=== PATIENT | female | born 1945 | race Caucasian/White ===

== ENCOUNTER 2022-05-03 23:34 | Emergency (ER) | payer MEDICARE ==
[2022-05-03] MEDS ORDERED: TYLENOL 325 MG PO STA (23:56)
[2022-05-03] MEDS ORDERED: Adacel Vial IM ONE ×2 (23:57→23:59)
[2022-05-03] MEDS ORDERED: TYLENOL 325 MG ONE (23:59)
--- NOTE | 2022-05-04 00:04 | ERPHSYRPT ---
- History of Present Illness Time Seen by Provider: 05/03/22 23:40 Source: patient, family Exam Limitations: no limitations Patient Subjective Stated Complaint: pt states that she was getting out of the tub and slipped and fell in the tub, hit head on the faucet and now has pain 10/10 on head also has some pain in back. pt states she has been feeling dizzy for a month. Triage Nursing Assessment: pt is alert and oriented, answering all questions appropriatly. Bp is elevated at 187/83 all other vitals wnl. Physician History: 76-year-old female presented in the ER after she slipped while getting out of bathtub and hit her right forehead against the faucet prior to arrival without loss of consciousness. Patient reports having dull aching frontal headache with a hematoma in the forehead without difficulty movements of eyeball. Denies any neck pain. No injury anywhere else. Occurred: just prior to arrival Severity: moderate Head Injury Location: frontal Method of Injury: fell Loss of Consciousness: no loss of consciousness Associated Symptoms: headaches Allergies/Adverse Reactions: No Known Drug Allergies Allergy (Unverified 05/03/22 23:51) Hx Tetanus, Diphtheria Vaccination/Date Given: No Hx Influenza Vaccination/Date Given: No Hx Pneumococcal Vaccination/Date Given: No Travel Risk - International Travel Have you traveled outside of the country in past 3 weeks: No - Coronavirus Screening Are you exhibiting any of the following symptoms?: No Close contact with a COVID-19 positive Pt in past 14-21 Days: No - Vaccine Status Have you recieved a Covid-19 vaccination: Yes [place] [employer]: Moderna - Vaccination Dates Date of 2cond Vaccination (if applicable): unknown - Review of Systems Constitutional: No Symptoms Eyes: No Symptoms Ears, Nose, & Throat: No Symptoms Respiratory: No Symptoms Cardiac: No Symptoms Abdominal/Gastrointestinal: No Symptoms Genitourinary Symptoms: No Symptoms Musculoskeletal: Injury Skin: Skin Lesions Neurological: Headache Psychological: No Symptoms Endocrine: No Symptoms Hematologic/Lymphatic: No Symptoms Immunological/Allergic: No Symptoms - Past Medical History Pertinent Past Medical History: Yes Cardiac History: Hypertension Endocrine Medical History: Diabetes Type II, Hypothyroidism - Past Surgical History Past Surgical History: No - Social History Smoking Status: Never smoker Exposure to second hand smoke: No Drug Use: none - Nursing Vital Signs Nursing Vital Signs: Initial Vital Signs Temperature 97.4 F 05/03/22 23:37 Pulse Rate 104 H 05/03/22 23:37 Respiratory Rate 20 05/03/22 23:37 Blood Pressure 187/83 05/03/22 23:37 O2 Sat by Pulse Oximetry 101 H 05/03/22 23:37 Pain Scale Pain Intensity 8 - Shruti Coma Score Best Eye Response (Sassafras): (4) open spontaneously Best Verbal Response (Sassafras): (5) oriented Best Motor Response (Shruti): (6) obeys commands [place]fras Total: 15 - Physical Exam General Appearance: no apparent distress Head Injury: contusions (Right forehead with abrasion of skin, hematoma with no step in deformity), swelling, tenderness Eye Exam: bilateral eye: normal inspection, PERRL, EOMI ENT Exam: airway nml, No evidence of ENT injury, No dental injury Neck Exam: supple, trachea midline, full range of motion, normal alignment, normal inspection Cardiovascular/Respiratory Exam: chest non-tender, normal breath sounds, regular rate/rhythm Gastrointestinal/Abdominal Exam: soft, non tender, No no distention Back Exam: normal inspection, normal range of motion Extremity Exam: non-tender, normal range of motion Mental Status Exam: alert, oriented x 3, 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 Exam: normal hearing, normal speech, PERRL Coordination/Gait Exam: normal finger to nose, normal gait Motor/Sensory Exam: no motor deficit, no sensory deficit, no pronator drift, negative Babinski's sign DTR Exam: bicep (R): 2+, bicep (L): 2+, knee (R): 2+, knee (L): 2+ Skin Exam: normal color SpO2 Interpretation: normal SpO2: 101 O2 Delivery: Room Air Ordered Tests: Active Orders 24 hr Category Date Time Status CERVICAL SPINE WO CONTRAST [CT] Stat Exams 05/03/22 23:56 Taken HEAD WITHOUT CONTRAST [CT] Stat Exams 05/03/22 23:56 Taken Medication Summary Discontinued Medications Generic Name Dose Route Start Last Admin Trade Name Pamella PRN Reason Stop Dose Admin Acetaminophen 975 mg 05/03/22 23:56 05/04/22 00:00 Acetaminophen 325 Mg Tablet PO 05/03/22 23:57 975 mg STAT STA Administration Acetaminophen Confirm 05/03/22 23:59 Acetaminophen 325 Mg Tablet Administered 05/04/22 00:00 Dose 975 mg .ROUTE .STK-MED ONE Diphtheria/Tetanus/Acell Pertussis 0.5 ml 05/03/22 23:57 05/04/22 00:01 Tdap --Diph,Pertuss(Acell),Tet Vac/Pf 0.5 Ml Vial IM 05/03/22 23:58 0.5 ml .ONCE ONE Administration Diphtheria/Tetanus/Acell Pertussis Confirm 05/03/22 23:59 Tdap --Diph,Pertuss(Acell),Tet Vac/Pf 0.5 Ml Vial Administered 05/04/22 00:00 Dose 0.5 ml IM .STK-MED ONE - Progress Progress: improved, pain not gone completely Progress Note: 05/04/22 00:40 She is given Tylenol for symptomatic relief. CT head and cervical spine negative for any acute findings. No injury anywhere else. Intact range of motion of eyeball. Recommended Tylenol and outpatient follow-up. Discussed signs symptoms of worsening needing return to ER which patient/family seem understanding. Counseled pt/family regarding: diagnosis, need for follow-up - Departure Departure Disposition: Home Clinical Impression: Contusion of forehead, Fall Condition: Stable Critical Care Time: No Referrals: SIMRAN ORNELAS MD [Primary Care Provider] - Follow Up with PCP/3 days Instructions: Preventing Falls in Older Adults, Head Injury Observation (DC) Additional Instructions: Take Tylenol as needed for pain. Intermittent ice application. Stay with responsible person for next 48 hours. Return to ER for increasing swelling, worsening headache, numbness tingling weakness, difficulty movements of eyeball etc.
[2022-05-04 00:40] VITALS: BP 166/86; PULSE 86
[2022-05-04 00:42] VITALS: O2SAT 101
--- NOTE | 2022-05-04 07:41 | XRAY ---
Indication: Head injury following fall in bathtub. Multiple contiguous axial images obtained through the head without contrast. Comparison: None Age-appropriate global atrophy and mild periventricular degenerative micro-ischemia bilaterally. No acute intracranial hemorrhage, abnormal extra-axial fluid collection, or mass effect. Fourth ventricle is midline without hydrocephalus. Small right frontal scalp hematoma. Bony calvarium intact. Visualized paranasal sinuses and mastoid air cells are clear. Impression: Right frontal scalp hematoma without underlying fracture. Nonacute senile brain. Comment: Preliminary interpretation made by [facility]. No critical discrepancy.
--- NOTE | 2022-05-04 07:43 | XRAY ---
Indication: Neck pain. Head injury following fall in bathtub. Multiple contiguous axial images obtained through the cervical spine. Sagittal and coronal reformatted images obtained. Comparison: None Age-related osteopenia. Axial images negative for acute fracture, suspicious bone lesions, or spinal canal stenosis. There is mild/moderate C3-C7 degenerative endplate spurring and mild multilevel bilateral degenerative facet hypertrophy. Sagittal and coronal reformatted images demonstrates normal alignment. C3-C7 degenerative disc space loss. No acute compression fracture, subluxation, or jumped facet. Normal appearing craniocervical junction. Visualized noncontrasted soft tissues demonstrates minimal right carotid calcifications. Lung apices clear. Impression: 1. Negative acute fracture/subluxation. 2. Osteopenia and multilevel degenerative changes. Comment: Preliminary interpretation made by [facility]. No critical discrepancy.
== END 2022-05-04 00:52 | disposition home or self-care (01) ==
LOC: ED 23:34
DX: S00.83XA Contusion of other part of head, initial encounter (principal); S00.81XA Abrasion of other part of head, initial encounter; W16.212A Fall in (into) filled bathtub causing other injury, initial encounter; Y93.E1 Activity, personal bathing and showering; Y92.002 Bathroom of unspecified non-institutional (private) residence as the place of occurrence of the external cause; R51.9 Headache, unspecified; I10 Essential (primary) hypertension; E11.9 Type 2 diabetes mellitus without complications
CPT/HCPCS: 70450; 72125; 90471; 90715; 99284; A9270-GY

== ENCOUNTER 2023-09-15 09:20 | Day surgery (SDC) | payer MEDICARE ==
--- NOTE | 2023-09-15 08:28 | HP ---
DATE OF SURGERY: 09/15/2023 HISTORY OF PRESENT ILLNESS: The patient is a 77-year-old with anemia of unclear etiology. No prior endoscopy. Family history negative for colon cancer. She denied any blood in her stool. PAST MEDICAL HISTORY: Hyperlipidemia, diabetes mellitus type II, hypothyroidism. PAST SURGICAL HISTORY: She denied any prior surgery. MEDICATIONS: Simvastatin, metformin, levothyroxine. ALLERGIES: NKDA. FAMILY HISTORY: Heart disease, stroke and diabetes. SOCIAL HISTORY: No smoking or alcohol abuse. REVIEW OF SYSTEMS: Fourteen systems reviewed. No chest pain or palpitations. Other systems negative or noncontributory as above and per preadmission questionnaire. PHYSICAL EXAMINATION: Height 5'11". BMI 18. GENERAL: No acute distress. HEENT: Sclerae nonicteric. EOMI. Oral mucous membranes moist. NECK: No JVD. CHEST: Equal excursion, nonlabored breathing. CVS: Regular rate and rhythm. ABDOMEN: Soft. No cyanosis or edema. EXTREMITIES: No significant edema. NEURO: Alert, oriented, moving extremities symmetrically. RECTAL: Deferred timed to endoscopy exam. PSYCH: Appropriate mood and affect. SKIN: Dry. IMPRESSION: Anemia. In need of EGD and colonoscopy for further evaluation. Risks and benefits explained in detail including but not limited to bleeding or infection, risk of bowel injury or perforation, risk of missed or nondiagnosis or incomplete exam possibly requiring barium enema, possible need for other studies, procedures or referral. Risk of anesthesia or sedation, risk of bowel prep but not limited to. Will proceed with outpatient EGD and colonoscopy under MAC anesthesia. Otherwise continue medication for hyperlipidemia, thyroid disease and diabetes.
[2023-09-15] MEDS: Lactated Ringers 1,000 ML IV SCH ×2 (09:25→10:20)
[2023-09-15] MEDS ORDERED: Lactated Ringers 1,000 ML IV ONE (09:56)
[2023-09-15 10:13] VITALS: RESP 18
[2023-09-15 10:17] LABS: Hematocrit 32.1 % (35-47); Hemoglobin 10.2 g/dL (12.0-16.0); Mean Cell Volume 88.7 fL (78-100); Mean Corpuscular Hemoglobin 28.2 pg (26-32); Mean Corpuscular Hgb Concent. 31.8 g/dL (32-36); Mean Platelet Volume 9.7 fL (7.5-11.0); Platelet Count 255 x10^3/uL (150-450); Red Blood Count 3.62 x10^6/uL (4.1-5.4); Red Cell Distribution Width 13.2 % (11.5-14.0); White Blood Count 9.2 x10^3/uL (4.0-10.5)
[2023-09-15 10:30] LABS: ALKALINE PHOSPHATASE 76 U/L (38-126); ANION GAP 7.4 MEQ/L (5-15); BLOOD UREA NITROGEN 4 mg/dL (7-17); CHLORIDE 106 mmol/L (98-107); Calcium 11.3 mg/dL (8.4-10.2); Carbon Dioxide 23 mmol/L (22-30); Creatinine 1 0.42 mg/dL (0.52-1.04); EST GLOMERULAR FILTRATION RATE > 60.0 ML/MIN; Glucose 232 mg/dL (74-106); Potassium 3.7 mmol/L (3.5-5.1); SGOT/AST 55 U/L (14-36); SGPT/ALT 24 U/L (0-35); SODIUM 133 mmol/L (137-145); Total Protein 7.2 g/dL (6.3-8.2)
[2023-09-15] MEDS ORDERED: Versed 2 MG/2 ML Injection ONE (13:00)
[2023-09-15] MEDS ORDERED: DIPRIVAN 200 MG/20 ML IV ONE (13:00)
[2023-09-15] MEDS ORDERED: Xylocaine-Mpf 2% 5 Ml Vial ONE (13:00)
[2023-09-15 13:36] VITALS: O2SAT 97
[2023-09-15 13:47] VITALS: BP 183/77; PULSE 88; TEMP 97
--- NOTE | 2023-09-16 09:06 | OP ---
SURGERY DATE/TIME: 09/15/2023 1232 PREOPERATIVE DIAGNOSIS: Anemia. POSTOPERATIVE DIAGNOSES: 1) Small gastric polyps. 2) Short segment distal esophagitis plus or minus very short segment of Simon's, path pending. 3) Transverse colon polyp. 4) Small early polyp versus hyperplastic lesion rectum. 5) Good bowel prep. 6) Withdrawal time seven minutes on colonoscopy. 7) ASA Class 3. PROCEDURES: 1) EGD with cold biopsy of gastric polyp. 2) Multiple cold biopsies of small fingerlettes of salmon-pink mucosa upper distal esophagus to evaluate for Simon's esophagitis. 3) Colonoscopy to cecum with hot snare polypectomy of 3.5 mm transverse colon polyp. 4) Hot biopsy polypectomy small early polyps versus hyperplastic lesion in rectum x3. SURGEON: Dr. Yasir Ramirez. ANESTHESIA: MAC. ESTIMATED BLOOD LOSS: Minimal. INDICATIONS: As noted above. Risks and benefits explained in detail and not limited to and consent obtained. DESCRIPTION OF PROCEDURE AND FINDINGS: The patient is taken to the endoscopy room. MAC anesthesia introduced. After official time out and no disagreement with planned procedure, bite block positioned. Video gastroscope easily passed down the esophagus to the patent pylorus to the junction of the second and third portion of the duodenum. Duodenum grossly unremarkable. No signs of any bleeding source. Scope pulled back in the stomach. Gastric mucosa overall looked pretty unremarkable. On retroflex the gastroesophageal junction snug against the scope. There was a small polyp in the gastric fundus that was cold biopsy removed. Good hemostasis noted. Scope pulled back. Gastroesophageal junction about 33 cm. There were very short fingerlettes extending up about 3 mm up the esophagus of salmon-pink mucosa and one side having erosion and some distal esophagitis. Again, this was a very short segment. Multiple cold biopsies were taken of the four quadrants of the fingerlettes and erosion area to evaluate for Simon's esophagitis. Good hemostasis noted. The remainder of the esophagus is grossly unremarkable. The scope is withdrawn. Attention is then turned to colonoscopy. Digital rectal exam did not reveal any rectal masses. Video colonoscope inserted and passed up the tortuous sigmoid, descending, transverse, ascending colon. With external pressure the scope was passed around to the cecum. Appendiceal orifice and valve well visualized and photo documented. Light transluminating right upper quadrant confirming position, photo documenting the appendiceal orifice and valve. The scope is slowly and carefully withdrawn over the next seven minutes. A polyp about 3.5 mm in the transverse colon was removed with hot snare polypectomy. Good hemostasis noted. Otherwise the patient had three little, tiny early polyps versus hyperplastic lesion in the rectum removed with hot biopsy forceps. Good hemostasis noted. There were no signs of any large polyps, masses or obstructing lesions. The prep overall was fair. The scope is withdrawn.
== END 2023-09-15 13:58 | disposition home or self-care (01) ==
LOC: SDC 09:20
PROVIDERS: ATTEND Surgery
DX: K20.90 Esophagitis, unspecified without bleeding (principal); D64.9 Anemia, unspecified; K31.7 Polyp of stomach and duodenum; K62.1 Rectal polyp; D12.3 Benign neoplasm of transverse colon
CPT/HCPCS: 36415; 80053; 85027; 93005; 99100; J2250; J2704